=== PATIENT | female | born 1995 | race Caucasian/White ===

== ENCOUNTER 2017-03-03 09:36 | Emergency (ER) | payer MEDICAID ==
[~2017-03-03 09:36] MED LIST: ADVIL200 M2 PO; ORTHO EVRA1 PATCH.WK TOP; TYLENOL #3 PO
[2017-03-03 10:12] LABS: URINE APPEARANCE SL HAZY; URINE BILIRUBIN NEG (NEG); URINE BLOOD 2+ (NEG); URINE COLOR YELLOW; URINE GLUCOSE NORM (NORM); URINE KETONE NEG (NEG); URINE LEUKOCYTE ESTERASE 2+ (NEG); URINE NITRATE NEG (NEG); URINE PROTEIN 1+ (NEG); URINE SOURCE CLEAN CATCH; URINE SPECIFIC GRAVITY 1.025 (1.003-1.035); URINE UROBILINOGEN NORM (NORM)
[2017-03-03 10:15] LABS: CULTURE INDICATED? YES; URINE BACTERIA AUWI 1+ (NEGATIVE); URINE SQUAMOUS EPITHELIAL CELL OCC /[HPF]; UWBCS1 AUWI 100-200 (0-5)
[2017-03-03 10:16] LABS: URINE MUCUS PRESENT
== END 2017-03-03 10:20 | disposition left against medical advice (07) ==
LOC: CED 09:36
DX: Z53.21 Procedure and treatment not carried out due to patient leaving prior to being seen by health care provider (principal)
CPT/HCPCS: 81003; 84703; 87086

== ENCOUNTER 2017-04-11 19:39 | Emergency (ER) | payer OTHER ==
[2017-04-11] MEDS ORDERED: ZOLOFT PO (19:45)
== END 2017-04-11 20:14 | disposition home or self-care (01) ==
LOC: SED 19:39
DX: M54.5 Low back pain (principal); F17.200 Nicotine dependence, unspecified, uncomplicated; Z88.8 Allergy status to other drugs, medicaments and biological substances; Z79.899 Other long term (current) drug therapy
CPT/HCPCS: 99283